=== PATIENT | male | born 1960 | race Caucasian/White ===

== ENCOUNTER 2020-06-23 17:24 | Emergency (ER) | payer OTHER ==
[~2020-06-23] VITALS: Ht 177.8 cm; Wt 97.0 kg
[2020-06-23 17:35] VITALS: BP 146/97
[2020-06-23] MEDS ORDERED: FAMO-63 PO (18:16)
[2020-06-23] MEDS ORDERED: ONDA4TAB12 PO (18:16)
[2020-06-23] MEDS ORDERED: BUTA1TAB23 PO (18:16)
== END 2020-06-23 18:40 | disposition home or self-care (01) ==
LOC: ER 17:24
DX: R11.2 Nausea with vomiting, unspecified (principal); Z20.822 Contact with and (suspected) exposure to COVID-19; R19.7 Diarrhea, unspecified; R51.9 Headache, unspecified
CPT/HCPCS: 99283; C9803; Q0162; U0003; U0005